=== PATIENT | male | born 1935 | race African-American/Black ===

== ENCOUNTER 2019-08-25 19:49 | Emergency (ER) | payer MEDICARE, MEDICAID ==
[~2019-08-25] VITALS: Ht 170.2 cm; Wt 68.0 kg
[2019-08-25 21:34] LABS: BASOPHILS % 0.7 % (0.0-2.0); EOSINOPHILS % 0.9 % (0.0-5.0); HEMATOCRIT. 40.2 % (42.0-52.0); HEMOGLOBIN. 12.6 g/dL (14.0-18.0); LYMPHOCYTES % 23.7 % (20.0-50.0); MEAN CORPUSCULAR HEMOGLOBIN 29.1 pg (28.0-32.0); MEAN CORPUSCULAR VOLUME 92.4 fL (80.0-94.0); MEAN PLATELET VOLUME 8.3 fl (7.4-10.4); MONOCYTES % 8.4 % (2.0-8.0); NEUTROPHILS % 66.3 % (40.0-76.0); PLATELET 193 x1000/uL (130-400); RED BLOOD CELL COUNT 4.35 mill/uL (4.7-6.1)
[2019-08-25 21:40] LABS: CHLORIDE 104 mEq/L (98-107)
[2019-08-25 21:42] LABS: INR 1.1; PROTHROMBIN TIME 11.2 sec (9.6-11.0)
[2019-08-25 22:57] VITALS: BP 164/75
== END 2019-08-25 23:15 | disposition home or self-care (01) ==
LOC: ER 19:49
DX: T82.838A Hemorrhage due to vascular prosthetic devices, implants and grafts, initial encounter (principal); R00.1 Bradycardia, unspecified; Y82.8 Other medical devices associated with adverse incidents; Y92.89 Other specified places as the place of occurrence of the external cause; I12.0 Hypertensive chronic kidney disease with stage 5 chronic kidney disease or end stage renal disease; N18.6 End stage renal disease; Z99.2 Dependence on renal dialysis
CPT/HCPCS: 36415; 71045; 80053; 85025; 85610; 93005; 99284; Z7610

== ENCOUNTER 2021-07-26 03:38 | Inpatient (IN) | payer MEDICARE, OTHER ==
[~2021-07-26] VITALS: Ht 172.7 cm; Wt 62.1 kg
[2021-07-26] MEDS ORDERED: ONDANSETRON HCL 4MG/2ML INJ IV STA (03:50)
[2021-07-26] MEDS ORDERED: MORPHINE SULFATE 4 MG/ML CPJ (NOT FOR IM USE) IV STA (03:50)
[2021-07-26] MEDS ORDERED: ASPIRIN 81MG TABLET PO ONE (04:00)
[2021-07-26 04:30] LABS: BASOPHILS % 0.2 % (0.0-2.0); HEMATOCRIT. 38.5 % (42.0-52.0); HEMOGLOBIN. 12.7 g/dL (14.0-18.0); LYMPHOCYTES % 11.5 % (20.0-50.0); MEAN CORPUSCULAR HEMOGLOBIN 30.4 pg (28.0-32.0); MEAN CORPUSCULAR VOLUME 92.3 fL (80.0-94.0); MEAN PLATELET VOLUME 8.8 fl (7.4-10.4); MONOCYTES % 5.5 % (2.0-8.0); NEUTROPHILS % 82.8 % (40.0-76.0); PLATELET 155 x1000/uL (130-400); RED BLOOD CELL COUNT 4.17 mill/uL (4.7-6.1); RED CELL DISTRIBUTION WIDTH 16.1 % (11.6-14.6)
[2021-07-26 04:36] LABS: CHLORIDE 103 mEq/L (98-107)
[2021-07-26] MEDS ORDERED: CEFTRIAXONE 1 G PREMIX 50 ML IV NR (05:00)
[2021-07-26] MEDS ORDERED: AZITHROMYCIN 500 MG in DEXT 5% WATER 250 ML IV NR (05:00)
[2021-07-26] MEDS ORDERED: SODIUM CHLORIDE 0.9% 1,000 ML IV NR (05:15)
[2021-07-26] MEDS ORDERED: HEPARIN 5000 UNITS/ML VIAL IV SCH ×2 (05:45→06:30)
[2021-07-26] MEDS ORDERED: HEPARIN 25,000 UNITS PREMIX 250 ML IV PRN ×2 (05:45→06:30)
[2021-07-26] MEDS ORDERED: HEPARIN 5000 UNITS/ML VIAL IV PRN ×2 (06:30)
[2021-07-26 08:00] VITALS: BP 162/78
[2021-07-26] MEDS ORDERED: ACETAMINOPHEN 325MG TABLET PO PRN (08:45)
[2021-07-26] MEDS ORDERED: DOCUSATE SODIUM 100MG CAPSULE PO PRN (08:45)
[2021-07-26] MEDS ORDERED: LORAZEPAM 0.5MG TABLET PO PRN (08:45)
[2021-07-26] MEDS ORDERED: IPRATROPIUM/ALBUTEROL 0.5-3(2.5)MG/3ML NEB HHN PRN (08:45)
[2021-07-26] MEDS: HYDROCODONE/ACETAMINOPHEN 5/325MG TABLET PO PRN ×3 (09:47→22:26)
[2021-07-26] MEDS: CLONIDINE 0.1MG TABLET PO PRN (09:47)
[2021-07-26 12:00] VITALS: BP 166/86
[2021-07-26 13:21] LABS: HEPATITIS B SURFACE ANTIGEN NEGATIVE
[2021-07-26] MEDS ORDERED: ASPI-1497 PO (13:26)
[2021-07-26] MEDS ORDERED: CALC667C MT (13:26)
[2021-07-26] MEDS ORDERED: T4 PO (13:27)
[2021-07-26] MEDS: PIPERACILLIN/TAZOBACTAM 3.375 G in DEXTROSE 5% WATER 50 ML IV SCH ×2 (13:44→22:32)
[2021-07-26] MEDS: AMLODIPINE 5MG TABLET PO SCH (13:45)
[2021-07-26 16:00] VITALS: BP 160/91
[2021-07-26 16:40] LABS: CREATINE KINASE MB FRACTION 6.1 ng/mL (0.5-3.6)
[2021-07-26 20:00] VITALS: BP 96/66
[2021-07-26] MEDS ORDERED: VANCOMYCIN 1250MG in DEXTROSE 5% WATER 250ML IV NR (22:00)
[2021-07-26] MEDS: ATORVASTATIN CALCIUM 40MG TABLET PO SCH (22:32)
[2021-07-26 23:40] LABS: D-DIMER 11.91 mg/L FEU (<0.50); PARTIAL THROMBOPLASTIN TIME 53.4 sec (23.4-31.0)
[2021-07-27] VITALS: BP 131/54
[2021-07-27 04:00] VITALS: BP 123/67
[2021-07-27 08:00] VITALS: BP 138/73
[2021-07-27 08:21] LABS: HEMATOCRIT. 40.4 % (42.0-52.0); HEMOGLOBIN. 12.8 g/dL (14.0-18.0); MEAN CORPUSCULAR HEMOGLOBIN 29.7 pg (28.0-32.0); MEAN CORPUSCULAR VOLUME 93.3 fL (80.0-94.0); MEAN PLATELET VOLUME 10.1 fl (7.4-10.4); PLATELET 177 x1000/uL (130-400); RED BLOOD CELL COUNT 4.33 mill/uL (4.7-6.1); RED CELL DISTRIBUTION WIDTH 16.9 % (11.6-14.6)
[2021-07-27] MEDS: PIPERACILLIN/TAZOBACTAM 3.375 G in DEXTROSE 5% WATER 50 ML IV SCH ×2 (08:57→21:36)
[2021-07-27] MEDS: AMLODIPINE 5MG TABLET PO SCH (08:57)
[2021-07-27 12:00] VITALS: BP 147/67
[2021-07-27] MEDS ORDERED: IOHEXOL-350 100 ML BOTTLE ONE (12:24)
[2021-07-27] MEDS ORDERED: VANCOMYCIN 500 MG PREMIX 100 ML IV NR (14:00)
[2021-07-27 14:04] LABS: PLATELET ESTIMATE NORMAL
[2021-07-27] MEDS ORDERED: NALOXONE HCL 0.4MG/ML VIAL IV PRN (14:15)
[2021-07-27] MEDS: ENOXAPARIN 30MG/0.3ML SYR SUBCUT SCH (15:51)
[2021-07-27 16:00] VITALS: BP 128/62
[2021-07-27 20:00] VITALS: BP 143/69
[2021-07-27] MEDS: ATORVASTATIN CALCIUM 40MG TABLET PO SCH (21:36)
[2021-07-28] VITALS: BP 144/75
[2021-07-28 04:00] VITALS: BP 140/68
[2021-07-28 07:28] LABS: HEMATOCRIT. 35.3 % (42.0-52.0); HEMOGLOBIN. 11.5 g/dL (14.0-18.0); MEAN CORPUSCULAR VOLUME 92.2 fL (80.0-94.0); MEAN PLATELET VOLUME 8.9 fl (7.4-10.4); PLATELET 236 x1000/uL (130-400); RED BLOOD CELL COUNT 3.83 mill/uL (4.7-6.1); RED CELL DISTRIBUTION WIDTH 16.5 % (11.6-14.6)
[2021-07-28 08:00] VITALS: BP 152/72
[2021-07-28] MEDS: PIPERACILLIN/TAZOBACTAM 3.375 G in DEXTROSE 5% WATER 50 ML IV SCH ×2 (08:42→22:32)
[2021-07-28] MEDS: AMLODIPINE 5MG TABLET PO SCH (08:42)
[2021-07-28 11:17] LABS: PLATELET ESTIMATE NORMAL
[2021-07-28 12:00] VITALS: BP 163/74
[2021-07-28] MEDS: HYDROCODONE/ACETAMINOPHEN 5/325MG TABLET PO PRN (12:44)
[2021-07-28] MEDS: CLONIDINE 0.1MG TABLET PO PRN (12:54)
[2021-07-28 16:00] VITALS: BP 113/54
[2021-07-28] MEDS: HYDRALAZINE HCL 25MG TABLET PO SCH ×2 (17:08→22:33)
[2021-07-28] MEDS: ENOXAPARIN 30MG/0.3ML SYR SUBCUT SCH (17:09)
[2021-07-28 20:00] VITALS: BP 140/66
[2021-07-28] MEDS: ATORVASTATIN CALCIUM 40MG TABLET PO SCH (22:33)
[2021-07-29] VITALS: BP 133/61
[2021-07-29 04:00] VITALS: BP 125/50
[2021-07-29] MEDS: HYDRALAZINE HCL 25MG TABLET PO SCH ×3 (06:06→21:00)
[2021-07-29 07:11] LABS: HEMATOCRIT. 37.3 % (42.0-52.0); HEMOGLOBIN. 11.9 g/dL (14.0-18.0); MEAN CORPUSCULAR HEMOGLOBIN 29.4 pg (28.0-32.0); MEAN CORPUSCULAR VOLUME 91.7 fL (80.0-94.0); MEAN PLATELET VOLUME 8.6 fl (7.4-10.4); PLATELET 258 x1000/uL (130-400); RED BLOOD CELL COUNT 4.07 mill/uL (4.7-6.1); RED CELL DISTRIBUTION WIDTH 16.6 % (11.6-14.6)
[2021-07-29] MEDS: PIPERACILLIN/TAZOBACTAM 3.375 G in DEXTROSE 5% WATER 50 ML IV SCH ×2 (08:49→21:01)
[2021-07-29] MEDS: AMLODIPINE 10MG TABLET PO SCH (08:50)
[2021-07-29 09:00] VITALS: BP 125/62
[2021-07-29 12:00] VITALS: BP 116/63
[2021-07-29 13:29] LABS: PLATELET ESTIMATE NORMAL
[2021-07-29 16:00] VITALS: BP 131/62
[2021-07-29] MEDS: ENOXAPARIN 30MG/0.3ML SYR SUBCUT SCH (16:05)
[2021-07-29 20:00] VITALS: BP 129/64
[2021-07-29] MEDS: ATORVASTATIN CALCIUM 40MG TABLET PO SCH (21:00)
[2021-07-29] MEDS: HYDROCODONE/ACETAMINOPHEN 5/325MG TABLET PO PRN (22:43)
[2021-07-30] VITALS: BP 130/60
[2021-07-30 04:00] VITALS: BP 142/68
[2021-07-30] MEDS: HYDRALAZINE HCL 25MG TABLET PO SCH ×3 (05:09→20:53)
[2021-07-30 06:44] LABS: HEMOGLOBIN. 11.4 g/dL (14.0-18.0); MEAN CORPUSCULAR HEMOGLOBIN 29.6 pg (28.0-32.0); MEAN CORPUSCULAR VOLUME 91.1 fL (80.0-94.0); MEAN PLATELET VOLUME 8.3 fl (7.4-10.4); PLATELET 276 x1000/uL (130-400); RED BLOOD CELL COUNT 3.84 mill/uL (4.7-6.1); RED CELL DISTRIBUTION WIDTH 16.5 % (11.6-14.6)
[2021-07-30 08:00] VITALS: BP 166/95
[2021-07-30] MEDS: AMLODIPINE 10MG TABLET PO SCH (09:00)
[2021-07-30 11:40] LABS: PLATELET ESTIMATE NORMAL
[2021-07-30 12:00] VITALS: BP 155/71
[2021-07-30] MEDS: PIPERACILLIN/TAZOBACTAM 3.375 G in DEXTROSE 5% WATER 50 ML IV SCH ×2 (12:19→20:52)
[2021-07-30] MEDS: HYDROCODONE/ACETAMINOPHEN 5/325MG TABLET PO PRN (12:33)
[2021-07-30 16:00] VITALS: BP 137/77
[2021-07-30] MEDS ORDERED: VANCOMYCIN 500 MG PREMIX 100 ML IV NR (18:00)
[2021-07-30] MEDS: ENOXAPARIN 30MG/0.3ML SYR SUBCUT SCH (18:17)
[2021-07-30 20:00] VITALS: BP 118/64
[2021-07-30] MEDS: ATORVASTATIN CALCIUM 40MG TABLET PO SCH (20:51)
[2021-07-31] VITALS (11 sets, daily range): BP systolic 95–150; BP diastolic 54–85
[2021-07-31] MEDS: HYDRALAZINE HCL 25MG TABLET PO SCH ×3 (05:11→22:00)
[2021-07-31] MEDS: PIPERACILLIN/TAZOBACTAM 3.375 G in DEXTROSE 5% WATER 50 ML IV SCH ×2 (09:00→22:31)
[2021-07-31] MEDS: AMLODIPINE 10MG TABLET PO SCH (09:00)
[2021-07-31] MEDS: ONDANSETRON HCL 4MG/2ML INJ IV PRN (09:20)
[2021-07-31] MEDS ORDERED: PANTOPRAZOLE SODIUM 40 MG/VIAL IV SCH (09:45)
[2021-07-31 10:33] LABS: MEAN CORPUSCULAR HEMOGLOBIN 29.1 pg (28.0-32.0); MEAN CORPUSCULAR VOLUME 91.9 fL (80.0-94.0); MEAN PLATELET VOLUME 8.4 fl (7.4-10.4); PLATELET 302 x1000/uL (130-400); RED BLOOD CELL COUNT 2.91 mill/uL (4.7-6.1); RED CELL DISTRIBUTION WIDTH 16.8 % (11.6-14.6)
[2021-07-31 10:35] LABS: HEMATOCRIT. 26.7 % (42.0-52.0); HEMOGLOBIN. 8.5 g/dL (14.0-18.0)
[2021-07-31] MEDS ORDERED: SODIUM CHLORIDE 0.9% 1000ML BAG (SEPSIS BOLUS) IV ONE (11:30)
[2021-07-31] MEDS ORDERED: SODIUM CHLORIDE 0.9% 500 ML IV NR (11:30)
[2021-07-31] MEDS: MIDODRINE HCL 5MG TABLET PO SCH ×3 (12:08→17:00)
[2021-07-31] MEDS ORDERED: LIDOCAINE HCL 1% 20ML VIAL (Pyxis) INJ ONE (13:44)
[2021-07-31] MEDS: ENOXAPARIN 30MG/0.3ML SYR SUBCUT SCH (15:35)
[2021-07-31 17:04] LABS: PLATELET ESTIMATE NORMAL
[2021-07-31 20:27] LABS: HEMATOCRIT 24.1 % (42.0-52.0); HEMOGLOBIN 8.1 g/dL (14.0-18.0)
[2021-07-31] MEDS: ATORVASTATIN CALCIUM 40MG TABLET PO SCH (22:11)
[2021-08-01] VITALS (16 sets, daily range): BP systolic 103–161; BP diastolic 53–82
[2021-08-01 00:21] LABS: HEMATOCRIT 23.3 % (42.0-52.0); HEMOGLOBIN 7.9 g/dL (14.0-18.0)
[2021-08-01] MEDS: HYDRALAZINE HCL 25MG TABLET PO SCH ×3 (06:50→23:09)
[2021-08-01 07:11] LABS: HEMATOCRIT. 23.2 % (42.0-52.0); HEMOGLOBIN. 7.6 g/dL (14.0-18.0); MEAN CORPUSCULAR HEMOGLOBIN 30.2 pg (28.0-32.0); MEAN CORPUSCULAR VOLUME 92.3 fL (80.0-94.0); MEAN PLATELET VOLUME 8.1 fl (7.4-10.4); PLATELET 287 x1000/uL (130-400); RED BLOOD CELL COUNT 2.51 mill/uL (4.7-6.1); RED CELL DISTRIBUTION WIDTH 15.5 % (11.6-14.6)
[2021-08-01 07:51] LABS: VITAMIN B12 SERUM >2000 pg/mL pg/mL (211-911)
[2021-08-01 08:00] LABS: FERRITIN 3929 ng/mL (22-322)
[2021-08-01] MEDS: AMLODIPINE 10MG TABLET PO SCH (09:00)
[2021-08-01] MEDS: MIDODRINE HCL 5MG TABLET PO SCH ×3 (10:18→17:00)
[2021-08-01] MEDS: LORAZEPAM 2MG/ML CPJ IV PRN (11:12)
[2021-08-01 12:42] LABS: PLATELET ESTIMATE NORMAL
[2021-08-01 13:07] LABS: HEMOGLOBIN 6.6 g/dL (14.0-18.0)
[2021-08-01 13:08] LABS: HEMATOCRIT 20.3 % (42.0-52.0)
[2021-08-01] MEDS ORDERED: VANCOMYCIN 500 MG PREMIX 100 ML IV NR (20:00)
[2021-08-01] MEDS: ATORVASTATIN CALCIUM 40MG TABLET PO SCH (21:19)
[2021-08-02] VITALS (11 sets, daily range): BP systolic 119–162; BP diastolic 46–71
[2021-08-02 01:00] LABS: HEMATOCRIT 25.3 % (42.0-52.0); HEMOGLOBIN 8.4 g/dL (14.0-18.0)
[2021-08-02] MEDS: HYDRALAZINE HCL 25MG TABLET PO SCH ×3 (06:45→20:59)
[2021-08-02 07:51] LABS: HEMATOCRIT. 23.6 % (42.0-52.0); HEMOGLOBIN. 7.8 g/dL (14.0-18.0); MEAN CORPUSCULAR HEMOGLOBIN 29.6 pg (28.0-32.0); MEAN CORPUSCULAR VOLUME 89.5 fL (80.0-94.0); MEAN PLATELET VOLUME 8.4 fl (7.4-10.4); PLATELET 338 x1000/uL (130-400); RED BLOOD CELL COUNT 2.64 mill/uL (4.7-6.1); RED CELL DISTRIBUTION WIDTH 15.6 % (11.6-14.6)
[2021-08-02] MEDS: MIDODRINE HCL 5MG TABLET PO SCH (09:00)
[2021-08-02] MEDS: AMLODIPINE 10MG TABLET PO SCH (09:00)
[2021-08-02] MEDS: PANTOPRAZOLE SODIUM 40 MG/VIAL IV SCH ×2 (09:23→16:48)
[2021-08-02 11:27] LABS: PLATELET ESTIMATE NORMAL
[2021-08-02] MEDS ORDERED: MIDODRINE HCL 5MG TABLET PO PRN (11:45)
[2021-08-02] MEDS: METOPROLOL TARTRATE 25MG TABLET PO SCH ×2 (16:20→20:59)
[2021-08-02] MEDS: CEFEPIME 1,000 MG in DEXTROSE 5% WATER 50 ML IV SCH (18:28)
[2021-08-02] MEDS: ATORVASTATIN CALCIUM 40MG TABLET PO SCH (20:58)
[2021-08-03] VITALS (12 sets, daily range): BP systolic 93–135; BP diastolic 42–60
[2021-08-03] MEDS: HYDRALAZINE HCL 25MG TABLET PO SCH ×3 (06:40→20:16)
[2021-08-03] MEDS: PANTOPRAZOLE SODIUM 40 MG/VIAL IV SCH ×2 (09:06→18:36)
[2021-08-03] MEDS: METOPROLOL TARTRATE 25MG TABLET PO SCH ×2 (09:07→20:17)
[2021-08-03] MEDS: AMLODIPINE 10MG TABLET PO SCH (09:07)
[2021-08-03 14:15] LABS: HEMATOCRIT. 21.5 % (42.0-52.0); HEMOGLOBIN. 7.1 g/dL (14.0-18.0); MEAN CORPUSCULAR HEMOGLOBIN 29.9 pg (28.0-32.0); MEAN PLATELET VOLUME 7.6 fl (7.4-10.4); PLATELET 405 x1000/uL (130-400); RED BLOOD CELL COUNT 2.37 mill/uL (4.7-6.1); RED CELL DISTRIBUTION WIDTH 15.3 % (11.6-14.6)
[2021-08-03] MEDS ORDERED: POTASSIUM CHLORIDE 20MEQ TABLET SR PO NR (15:45)
[2021-08-03] MEDS ORDERED: VANCOMYCIN 500 MG PREMIX 100 ML IV NR (16:00)
[2021-08-03 17:46] LABS: PLATELET ESTIMATE INCREASED
[2021-08-03] MEDS: CEFEPIME 1,000 MG in DEXTROSE 5% WATER 50 ML IV SCH (18:36)
[2021-08-03] MEDS: ATORVASTATIN CALCIUM 40MG TABLET PO SCH (20:16)
[2021-08-04] VITALS (20 sets, daily range): BP systolic 95–151; BP diastolic 31–70
[2021-08-04] MEDS: HYDRALAZINE HCL 25MG TABLET PO SCH ×3 (06:26→21:48)
[2021-08-04] MEDS: PANTOPRAZOLE SODIUM 40 MG/VIAL IV SCH ×2 (08:00→17:24)
[2021-08-04] MEDS: METOPROLOL TARTRATE 25MG TABLET PO SCH ×2 (08:00→20:37)
[2021-08-04] MEDS: AMLODIPINE 10MG TABLET PO SCH (08:00)
[2021-08-04 08:15] LABS: MEAN CORPUSCULAR HEMOGLOBIN 30.9 pg (28.0-32.0); MEAN CORPUSCULAR VOLUME 92.2 fL (80.0-94.0); MEAN PLATELET VOLUME 7.5 fl (7.4-10.4); PLATELET 473 x1000/uL (130-400); RED BLOOD CELL COUNT 2.24 mill/uL (4.7-6.1); RED CELL DISTRIBUTION WIDTH 15.4 % (11.6-14.6)
[2021-08-04 09:05] LABS: HEMATOCRIT. 20.7 % (42.0-52.0); HEMOGLOBIN. 6.9 g/dL (14.0-18.0)
[2021-08-04] MEDS: ACETAMINOPHEN 325MG TABLET PO PRN (09:51)
[2021-08-04 14:38] LABS: PLATELET ESTIMATE INCREASED
[2021-08-04] MEDS: CEFEPIME 1,000 MG in DEXTROSE 5% WATER 50 ML IV SCH (17:24)
[2021-08-04 18:19] LABS: HEMATOCRIT 29.2 % (42.0-52.0); HEMOGLOBIN 9.9 g/dL (14.0-18.0)
[2021-08-04 19:13] LABS: BG BASE EXCESS 3.6 mmol/L (-2.0-2.0); BG CARBOXYHEMOGLOBIN 0.2 % (0.5-1.5); BG FRACTION INSPIRED OXYGEN 21; BG HCO3 ACT 26.9 mmol/L (22.0-26.0); BG METHEMOGLOBIN 0.3 % (0.0-1.5); BG OXYHEMOGLOBIN 90.5 % (94.0-97.0); BG PCO2 36.1 mmHg (35.0-45.0); BG SAMPLE SITE RIGHT BRACHIAL; BG VENT MODE ROOM AIR
[2021-08-04] MEDS ORDERED: POTASSIUM CHLORIDE 20MEQ/PACKET PO NR (20:22)
[2021-08-04] MEDS: ATORVASTATIN CALCIUM 40MG TABLET PO SCH (20:37)
[2021-08-05] VITALS (12 sets, daily range): BP systolic 92–149; BP diastolic 22–90
[2021-08-05] MEDS: ONDANSETRON HCL 4MG/2ML INJ IV PRN (01:15)
[2021-08-05] MEDS: LORAZEPAM 2MG/ML CPJ IV PRN ×3 (03:23→22:37)
[2021-08-05] MEDS: ACETAMINOPHEN 325MG TABLET PO PRN (03:33)
[2021-08-05 05:31] LABS: HEMOGLOBIN. 9.4 g/dL (14.0-18.0); MEAN CORPUSCULAR HEMOGLOBIN 29.8 pg (28.0-32.0); MEAN CORPUSCULAR VOLUME 88.8 fL (80.0-94.0); MEAN PLATELET VOLUME 7.5 fl (7.4-10.4); PLATELET 401 x1000/uL (130-400); RED BLOOD CELL COUNT 3.16 mill/uL (4.7-6.1)
[2021-08-05] MEDS: HYDRALAZINE HCL 25MG TABLET PO SCH ×3 (05:47→23:16)
[2021-08-05 06:23] LABS: PHOSPHORUS 3.6 mg/dL (2.5-4.9)
[2021-08-05] MEDS: AMLODIPINE 10MG TABLET PO SCH (10:26)
[2021-08-05] MEDS: METOPROLOL TARTRATE 25MG TABLET PO SCH ×2 (10:26→21:19)
[2021-08-05] MEDS: PANTOPRAZOLE SODIUM 40 MG/VIAL IV SCH ×2 (10:26→17:06)
[2021-08-05 14:13] LABS: PLATELET ESTIMATE NORMAL
[2021-08-05] MEDS: CEFEPIME 1,000 MG in DEXTROSE 5% WATER 50 ML IV SCH (17:06)
[2021-08-05] MEDS: ATORVASTATIN CALCIUM 40MG TABLET PO SCH (21:19)
[2021-08-06] VITALS (12 sets, daily range): BP systolic 101–152; BP diastolic 37–84
[2021-08-06] MEDS: HYDRALAZINE HCL 25MG TABLET PO SCH ×3 (05:22→20:49)
[2021-08-06 06:43] LABS: HEMATOCRIT. 26.7 % (42.0-52.0); HEMOGLOBIN. 9.1 g/dL (14.0-18.0); MEAN CORPUSCULAR HEMOGLOBIN 30.2 pg (28.0-32.0); MEAN CORPUSCULAR VOLUME 89.1 fL (80.0-94.0); MEAN PLATELET VOLUME 7.8 fl (7.4-10.4); PLATELET 444 x1000/uL (130-400); RED CELL DISTRIBUTION WIDTH 16.3 % (11.6-14.6)
[2021-08-06] MEDS: PANTOPRAZOLE SODIUM 40 MG/VIAL IV SCH ×2 (08:59→17:43)
[2021-08-06] MEDS: LORAZEPAM 2MG/ML CPJ IV PRN (08:59)
[2021-08-06] MEDS: AMLODIPINE 10MG TABLET PO SCH (09:02)
[2021-08-06] MEDS: METOPROLOL TARTRATE 25MG TABLET PO SCH (09:02)
[2021-08-06 14:12] LABS: PLATELET ESTIMATE SLIGHTLY INCREASED
[2021-08-06] MEDS ORDERED: *PATIENT'S OWN MEDICATION STORAGE XX SCH (17:00)
[2021-08-06] MEDS: CEFEPIME 1,000 MG in DEXTROSE 5% WATER 50 ML IV SCH (17:42)
[2021-08-06] MEDS ORDERED: VANCOMYCIN 500 MG PREMIX 100 ML IV NR (18:00)
[2021-08-06] MEDS: ATORVASTATIN CALCIUM 40MG TABLET PO SCH (20:47)
[2021-08-06] MEDS: ONDANSETRON HCL 4MG/2ML INJ IV PRN (23:33)
[2021-08-07] VITALS (10 sets, daily range): BP systolic 103–131; BP diastolic 8–73
[2021-08-07] MEDS: HYDRALAZINE HCL 25MG TABLET PO SCH ×2 (05:42→13:58)
[2021-08-07] MEDS: PANTOPRAZOLE SODIUM 40 MG/VIAL IV SCH ×2 (09:53→18:14)
[2021-08-07] MEDS: AMLODIPINE 10MG TABLET PO SCH (09:54)
[2021-08-07] MEDS: CEFEPIME 1,000 MG in DEXTROSE 5% WATER 50 ML IV SCH (18:14)
[2021-08-07 21:05] LABS: HEMATOCRIT 23.6 % (42.0-52.0); HEMOGLOBIN 7.8 g/dL (14.0-18.0); MEAN CORPUSCULAR HEMOGLOBIN 30.1 pg (28.0-32.0); MEAN CORPUSCULAR VOLUME 90.8 fL (80.0-94.0); PLATELET 439 x1000/uL (130-400); RED CELL DISTRIBUTION WIDTH 16.2 % (11.6-14.6)
[2021-08-07] MEDS: ATORVASTATIN CALCIUM 40MG TABLET PO SCH (21:09)
[2021-08-08] VITALS (21 sets, daily range): BP systolic 103–152; BP diastolic 44–71
[2021-08-08 08:21] LABS: HEMATOCRIT. 22.1 % (42.0-52.0); HEMOGLOBIN. 7.3 g/dL (14.0-18.0); MEAN CORPUSCULAR HEMOGLOBIN 29.8 pg (28.0-32.0); MEAN CORPUSCULAR VOLUME 90.2 fL (80.0-94.0); MEAN PLATELET VOLUME 7.8 fl (7.4-10.4); PLATELET 425 x1000/uL (130-400); RED BLOOD CELL COUNT 2.45 mill/uL (4.7-6.1); RED CELL DISTRIBUTION WIDTH 16.4 % (11.6-14.6)
[2021-08-08] MEDS: AMLODIPINE 10MG TABLET PO SCH (08:49)
[2021-08-08] MEDS: PANTOPRAZOLE SODIUM 40 MG/VIAL IV SCH ×2 (08:50→17:33)
[2021-08-08] MEDS ORDERED: MIDAZOLAM HCL 5 MG/5 ML VIAL IV PRN (15:57)
[2021-08-08] MEDS ORDERED: FENTANYL CITRATE/PF 50MCG/ML 2ML VIAL ONE (15:58)
[2021-08-08] MEDS ORDERED: MIDAZOLAM HCL 5 MG/5 ML VIAL ONE (15:58)
[2021-08-08 17:00] LABS: PLATELET ESTIMATE INCREASED
[2021-08-08] MEDS: CEFEPIME 1,000 MG in DEXTROSE 5% WATER 50 ML IV SCH (17:33)
[2021-08-08] MEDS: ATORVASTATIN CALCIUM 40MG TABLET PO SCH (22:21)
[2021-08-09] VITALS (12 sets, daily range): BP systolic 109–139; BP diastolic 37–79
[2021-08-09 07:53] LABS: HEMATOCRIT. 29.5 % (42.0-52.0); HEMOGLOBIN. 9.8 g/dL (14.0-18.0); MEAN CORPUSCULAR HEMOGLOBIN 30.1 pg (28.0-32.0); MEAN CORPUSCULAR VOLUME 90.6 fL (80.0-94.0); PLATELET 447 x1000/uL (130-400); RED BLOOD CELL COUNT 3.26 mill/uL (4.7-6.1); RED CELL DISTRIBUTION WIDTH 15.4 % (11.6-14.6)
[2021-08-09] MEDS: PANTOPRAZOLE SODIUM 40 MG/VIAL IV SCH ×2 (08:25→18:15)
[2021-08-09] MEDS: AMLODIPINE 10MG TABLET PO SCH (08:26)
[2021-08-09] MEDS ORDERED: POTASSIUM CHLORIDE 20MEQ TABLET SR PO NR (10:15)
[2021-08-09] MEDS: ONDANSETRON HCL 4MG/2ML INJ IV PRN (10:22)
[2021-08-09 11:16] LABS: PLATELET ESTIMATE SLIGHTLY INCREASED
[2021-08-09] MEDS: ACETAMINOPHEN 325MG TABLET PO PRN (16:18)
[2021-08-09] MEDS: ATORVASTATIN CALCIUM 40MG TABLET PO SCH (21:22)
[2021-08-10] VITALS (8 sets, daily range): BP systolic 86–139; BP diastolic 46–60
[2021-08-10 06:15] LABS: HEMATOCRIT. 28.4 % (42.0-52.0); HEMOGLOBIN. 9.4 g/dL (14.0-18.0); MEAN CORPUSCULAR HEMOGLOBIN 30.1 pg (28.0-32.0); MEAN CORPUSCULAR VOLUME 91.5 fL (80.0-94.0); PLATELET 411 x1000/uL (130-400); RED BLOOD CELL COUNT 3.11 mill/uL (4.7-6.1); RED CELL DISTRIBUTION WIDTH 15.4 % (11.6-14.6)
[2021-08-10] MEDS: PANTOPRAZOLE SODIUM 40 MG/VIAL IV SCH (09:36)
[2021-08-10] MEDS: AMLODIPINE 10MG TABLET PO SCH (09:48)
[2021-08-10 10:20] LABS: PLATELET ESTIMATE INCREASED
[2021-08-10] MEDS ORDERED: SUCR1TAB30 MT (11:11)
[2021-08-10] MEDS ORDERED: PANT40TA51 MT (11:11)
[2021-08-10] MEDS ORDERED: AMLO10TA80 PO (11:11)
[2021-08-10] MEDS ORDERED: LIP40 PO (11:11)
[2021-08-10] MEDS ORDERED: VANCOMYCIN 500 MG PREMIX 100 ML IV NR (21:00)
== END 2021-08-10 14:19 | disposition home health service (06) | DRG 720 ==
LOC: ER 03:38 → MICUSO 05:32 → ENRESERV 07:20 → 8WST 07:55 → 5EST 07-31 10:25
PROVIDERS: ADMIT Internal Medicine; ATTEND Internal Medicine
PROC: 5A1D70Z Performance of Urinary Filtration, Intermittent, Less than 6 Hours Per Day (ICD-10-PCS; 2021-07-26)
PROC: 5A1D70Z Performance of Urinary Filtration, Intermittent, Less than 6 Hours Per Day (ICD-10-PCS; 2021-07-28)
PROC: 5A1D70Z Performance of Urinary Filtration, Intermittent, Less than 6 Hours Per Day (ICD-10-PCS; 2021-07-30)
PROC: 0W9B30Z Drainage of Left Pleural Cavity with Drainage Device, Percutaneous Approach (ICD-10-PCS; principal; 2021-07-31)
PROC: 05HY33Z Insertion of Infusion Device into Upper Vein, Percutaneous Approach (ICD-10-PCS; 2021-07-31)
PROC: B54MZZA Ultrasonography of Right Upper Extremity Veins, Guidance (ICD-10-PCS; 2021-07-31)
PROC: 30233N1 Transfusion of Nonautologous Red Blood Cells into Peripheral Vein, Percutaneous Approach (ICD-10-PCS; 2021-07-31)
PROC: 5A1D70Z Performance of Urinary Filtration, Intermittent, Less than 6 Hours Per Day (ICD-10-PCS; 2021-08-01)
PROC: 5A1D70Z Performance of Urinary Filtration, Intermittent, Less than 6 Hours Per Day (ICD-10-PCS; 2021-08-02)
PROC: 5A1D70Z Performance of Urinary Filtration, Intermittent, Less than 6 Hours Per Day (ICD-10-PCS; 2021-08-04)
PROC: 5A1D70Z Performance of Urinary Filtration, Intermittent, Less than 6 Hours Per Day (ICD-10-PCS; 2021-08-07)
PROC: 0DB78ZX Excision of Stomach, Pylorus, Via Natural or Artificial Opening Endoscopic, Diagnostic (ICD-10-PCS; 2021-08-08)
PROC: 5A1D70Z Performance of Urinary Filtration, Intermittent, Less than 6 Hours Per Day (ICD-10-PCS; 2021-08-09)
DX: A41.02 Sepsis due to Methicillin resistant Staphylococcus aureus (principal); J96.01 Acute respiratory failure with hypoxia; R57.8 Other shock; J93.0 Spontaneous tension pneumothorax; I50.43 Acute on chronic combined systolic (congestive) and diastolic (congestive) heart failure; G93.41 Metabolic encephalopathy; I21.A1 Myocardial infarction type 2; K25.4 Chronic or unspecified gastric ulcer with hemorrhage; K26.4 Chronic or unspecified duodenal ulcer with hemorrhage; D63.1 Anemia in chronic kidney disease; I42.0 Dilated cardiomyopathy; N18.6 End stage renal disease; I69.351 Hemiplegia and hemiparesis following cerebral infarction affecting right dominant side; I16.0 Hypertensive urgency; I13.2 Hypertensive heart and chronic kidney disease with heart failure and with stage 5 chronic kidney disease, or end stage renal disease; I27.21 Secondary pulmonary arterial hypertension; R65.20 Severe sepsis without septic shock; R47.01 Aphasia; N28.89 Other specified disorders of kidney and ureter; J18.8 Other pneumonia, unspecified organism; R47.1 Dysarthria and anarthria; K29.60 Other gastritis without bleeding; C34.91 Malignant neoplasm of unspecified part of right bronchus or lung; Z20.822 Contact with and (suspected) exposure to COVID-19; N28.1 Cyst of kidney, acquired; I08.1 Rheumatic disorders of both mitral and tricuspid valves; T82.868A Thrombosis due to vascular prosthetic devices, implants and grafts, initial encounter; T82.898A Other specified complication of vascular prosthetic devices, implants and grafts, initial encounter; Y83.2 Surgical operation with anastomosis, bypass or graft as the cause of abnormal reaction of the patient, or of later complication, without mention of misadventure at the time of the procedure; Y92.238 Other place in hospital as the place of occurrence of the external cause; R13.10 Dysphagia, unspecified; E78.00 Pure hypercholesterolemia, unspecified; J44.0 Chronic obstructive pulmonary disease with (acute) lower respiratory infection; Z87.891 Personal history of nicotine dependence; Z99.2 Dependence on renal dialysis; I69.392 Facial weakness following cerebral infarction; Z82.49 Family history of ischemic heart disease and other diseases of the circulatory system; Z78.1 Physical restraint status
CPT/HCPCS: 36415; 36600; 71045; 71250; 71275; 74176; 76770; 76937; 78278; 80048; 80053; 80061; 80202; 82270; 82375; 82550; 82553; 82607; 82728; 82746; 82805; 83036; 83540; 83550; 83605; 83735; 83880; 84100; 84132; 84145; 84443; 84484; 85014; 85018; 85025; 85027; 85044; 85379; 86705; 86709; 86803; 86850; 86900; 86920; 86945; 87077; 87186; 87340; 87426; 88305; 88312; 88313; 92610; 93005; 93306; 93970; 93971; 97116; 97162; 97164; 97166; 99291; A6261; A9560; C1725; C1893; C9113; J0456; J0692; J0696; J1644; J1650; J2060; J2250; J2270; J2405; J2543; J3010; J3370; J3490; J7040; J7060; P9016; P9021; Q9967